=== PATIENT | female | born 2000 ===

== ENCOUNTER 2024-06-07 02:16 | Observation (INO) | payer MEDICAID, SELFPAY ==
[2024-06-07 02:27] VITALS: BP 116/79; PULSE 104
[2024-06-07 02:31] VITALS: BP 120/74; PULSE 117
[2024-06-07 02:46] VITALS: BP 115/88; PULSE 112
[2024-06-07 03:01] VITALS: BP 111/74; PULSE 100
--- NOTE | 2024-07-03 11:26 | PM.OBTRLD ---
OB - Triage/Final Diagnosis Visit Information Comments/Additional reasons for admission: I have assessed the risk for this patient, Polly Escobedo, and determined that she would benefit from observation care. Final Diagnosis (1) False labor: Code(s): O47.9 - False labor, unspecified Status: Acute
== END 2024-06-07 03:30 | disposition home or self-care (01) ==
PROVIDERS: Admitting Provider Obstetrics & Gynecology; Visit Provider Obstetrics & Gynecology
DX: O47.1 False labor at or after 37 completed weeks of gestation (principal); Z3A.37 37 weeks gestation of pregnancy
CPT/HCPCS: G0378; G0379